=== PATIENT | female | born 1965 | race Caucasian/White ===

== ENCOUNTER → 2024-02-05 12:02 | Outpatient (REF) | payer OTHER, SELFPAY | LOC: HWWDC 12:02 | PROVIDERS: ATTENDING PHYSICIAN Obstetrics & Gynecology Gynecology; FAMILY PHYSICIAN Physician Assistant Medical | DX: Z01.419 Encounter for gynecological examination (general) (routine) without abnormal findings (principal); Z12.31 Encounter for screening mammogram for malignant neoplasm of breast | CPT/HCPCS: 77063; 77067 ==

== ENCOUNTER → 2024-09-15 14:50 | Outpatient (REF) | payer OTHER, SELFPAY | LOC: DHSLP 14:50 | PROVIDERS: ATTENDING PHYSICIAN Internal Medicine; FAMILY PHYSICIAN Physician Assistant Medical | DX: G47.33 Obstructive sleep apnea (adult) (pediatric) (principal) | CPT/HCPCS: 95800 ==

== ENCOUNTER → 2025-07-13 13:04 | Outpatient (REF) | payer OTHER, SELFPAY | LOC: HWWDC 13:04 | PROVIDERS: ATTENDING PHYSICIAN Obstetrics & Gynecology Gynecology; FAMILY PHYSICIAN Family Medicine | DX: Z12.31 Encounter for screening mammogram for malignant neoplasm of breast (principal) | CPT/HCPCS: 77063; 77067 ==

== ENCOUNTER 2025-08-16 18:58 | Emergency (ER) | payer OTHER, SELFPAY ==
[2025-08-16 19:03] VITALS: BP 174/86
[2025-08-16 22:06] VITALS: BP 146/72
--- NOTE | 2025-08-16 22:23 | ED.GENMED ---
History of Present Illness
General
Chief Complaint: Skin Surface Trauma
Source: patient
Exam Limitations: none
Time Seen by Provider: 08/16/25 21:40
Nursing documentation reviewed up to this point in time: agreed with
History of Present Illness
History of Present Illness:
Patient is a 60-year-old female who lacerated her right toe near her garden. She complains of small laceration. She is unsure of her last tetanus. No other injuries. No bony pain.
Past History
Past History
ED Past Medical History: None
ED Past Surgical History: Cholecystectomy
Social History
Tobacco: Non-smoker
Alcohol: Occasional
Personal:
Living: with family
Employment: Not employed
Family History
Family History: Other (afib)
Phy Exam
General Physical Exam
General Presentation: no apparent distress
General age: appears stated age
General Skin: warm and dry
General Habitus: normal
General Mental: alert
General Hydration: appears well hydrated
Neurological Exam
Neurological Exam: alert and oriented x3
Musculoskeletal Exam
Musculoskeletal Exam: other (Patient with 3 cm flap laceration to the plantar aspect of the right great toe no bony tenderness no swelling)
Skin Exam
Skin Exam: normal color and warm/dry
Psychiatric Exam
Psychiatric Exam: normal mood/affect
Course
Vital Signs
Initial and Last Documented VS:
Initial Vital Signs
Temp Pulse Resp BP Pulse Ox
98.9 F 83 18 174/86 98
08/16/25 19:03 08/16/25 19:03 08/16/25 19:03 08/16/25 19:03 08/16/25 19:03
Last Documented Vital Signs
Temp Pulse Resp BP Pulse Ox
97.8 F 66 15 146/72 100
08/16/25 22:06 08/16/25 22:06 08/16/25 22:06 08/16/25 22:06 08/16/25 22:06
Procedures
Laceration Closure
Right First Toe:
Status of Wound: clean
Size of Wound in cm: 3
Description of Wound Edges: sharp and flap-well vascularized
Preparation: cleaned with saline
Type of Closure: other (Steri-Strips)
MDM/Problems Addressed
Differential Diagnosis Includes:
Not limited to laceration
MDM/Problems Addressed:
Patient with laceration to right great toe was irrigated with copious angela normal saline and repaired with Steri-Strips. This is a flap superficial laceration near avulsion. Flap was tacked down using Steri-Strips. Wound care reviewed tetanus
updated
*Pulse Oximetry
SaO2: 100
Oxygen Mode of Delivery: Room air
Patient hypoxic: no
*Critical Care Note
Total Time (30-74mins, 75-104mins- exclusive of procedures): Not Applicable
ED Attending Note
-
Portions of this chart may have been created with voice recognition software.� Occasional wrong word or��sound alike� substitutions may have occurred due to the inherent limitations of voice recognition software.
Discharge Plan
Departure
Patient Disposition: Home (Routine Discharge)
Date of Disposition: 08/16/25
Time of Disposition: 22:27
Patient with high blood pressure during this ER visit?: Yes
Condition: Fair
Covid-19: Not Applicable
Discharge Problem:
Laceration
Instructions: Wound Care (DC)
Prescriptions:
No Action
amoxicillin-pot clavulanate 1 TABLET tablet
1 tab PO Q12 Qty: 20 0RF
Referrals:
Philip Cline MD [Family Provider, Family Practice]
Activity Restrictions/Additional Instructions:
Keep area clean and dry for 24 hours after 24 hours wash twice a day with soap and water pat dry
Trim Steri-Strips as needed. Follow-up with family doctor in the next 2 to 3 days for wound check .
return if any signs of infection
Interventions
Interventions:
*Risk Screen - Suicide Last Done: 08/16/25 19:03
*General Assessment Last Done: 08/16/25 19:03
*Neglect/Abuse Screening Last Done: 08/16/25 19:03
*ED- Fall Risk Assessment Last Done: 08/16/25 19:03
*ED COVID-19 Vaccine History Last Done: 08/16/25 19:03
*ED Influenza Vaccine History Last Done: 08/16/25 19:03
ED-Skin Assessment Last Done: 08/16/25 22:06
Discharge Date and Time
Print Language: CAMBODIAN
[2025-08-16] MEDS: ADACEL 0.5 ML IM (22:39)
== END 2025-08-16 22:43 | disposition home or self-care (01) ==
LOC: EMR 18:58
PROVIDERS: EMERGENCY PHYSICIAN Emergency Medicine; FAMILY PHYSICIAN Family Medicine
DX: S91.111A Laceration without foreign body of right great toe without damage to nail, initial encounter (principal); R03.0 Elevated blood-pressure reading, without diagnosis of hypertension; Z23 Encounter for immunization; X58.XXXA Exposure to other specified factors, initial encounter
CPT/HCPCS: 99282; 90471; 90715

== ENCOUNTER 2025-11-03 12:48 | Inpatient (IN) | payer OTHER, SELFPAY ==
[2025-11-03] VITALS (10 sets, daily range): BP systolic 120–144; BP diastolic 63–109
--- NOTE | 2025-11-03 07:36 | ED.GENMED ---
History of Present Illness
General
Chief Complaint: Heart Rate Problem
Source: patient
Exam Limitations: none
Time Seen by Provider: 11/03/25 06:59
Nursing documentation reviewed up to this point in time: agreed with
History of Present Illness
History of Present Illness:
Note:
CHIEF COMPLAINT(S)
The patient presents with symptoms of bronchitis and exacerbation of atrial fibrillation following medication intake.
HISTORY OF PRESENT ILLNESS
The patient is a 60-year-old female with a past medical history significant for atrial fibrillation. She was diagnosed with bronchitis by her primary care physician who noted wheezing upon examination. The physician prescribed prednisone, with an
initial dose of 20 mg taken yesterday. The patient reported feeling fatigued and attributed this initially to the medication. This morning, at approximately 1:45 AM, the patients atrial fibrillation symptoms re-emerged. Following this, she took four
half-tablets of a prescribed medication, only to experience severe gastrointestinal distress, involving vomiting and near syncope ('I was literally doing toilet, thyroid, and throwing up, and I thought I was going to faint'). She recognized these
symptoms as exacerbated in comparison to similar episodes in September. Currently, she feels significantly unwell.
PAST MEDICAL AND SURGICAL HISTORY
Positive for episodes of atrial fibrillation.
CHRONIC MEDICAL CONDITIONS SIGNIFICANTLY AFFECTING CARE
The patient�s history of atrial fibrillation is significant in her current presentation.
MEDICATIONS
The patient is currently prescribed prednisone for bronchitis.
REVIEW OF SYSTEMS
- Cardiovascular: Exacerbation of atrial fibrillation events.
- Respiratory: Wheezing noted by primary physician.
- Gastrointestinal: Severe vomiting subsequent to medication ingestion.
- General: Fatigue and dizziness noted.
PHYSICAL EXAM
General: Alert, no acute distress.
Skin: Warm, dry.
Head: Normocephalic, atraumatic.
Neck: Supple, trachea midline.
Eyes, Ears, Nose, Mouth, and Throat: Oral mucosa moist.
Cardiovascular: Normal peripheral perfusion, No edema. irregular rhythm.
Respiratory: Respirations are non-labored. Wheezing heard.
Gastrointestinal: Abdomen nondistended.
Back: Normal range of motion, Normal alignment.
Musculoskeletal: Normal ROM, normal strength.
Neurological: Alert and oriented to person, place, time, and situation, No focal neurological deficit observed.
Psychiatric: Cooperative, appropriate mood and affect.
PROBLEM LIST
Acute Problems:
- Exacerbation of atrial fibrillation
- Bronchitis
- Gastrointestinal distress post-medication ingestion
PLAN
- Administer medication to control the heart rate.
- Conduct a chest X-ray.
- Perform blood tests, including checks for COVID-19 and influenza.
- Evaluate further symptoms and conditions indicated by tests and imaging.
DIFFERENTIAL DIAGNOSIS
The Differential Diagnosis includes, in no particular order and is not limited to:
1. Exacerbation of atrial fibrillation
2. Acute bronchitis
3. COVID-19 infection
4. Influenza
5. Adverse reaction to prednisone
6. Other viral respiratory infections
7. Pneumonia
8. Heart failure
9. Pulmonary embolism
10. Medication-induced gastrointestinal disturbance
EKG
My independent EKG interpretation is:
- Time of EKG: Not specified
- Rhythm: Atrial fibrillation
- Heart Rate: 115 beats per minute
- Notable Intervals:
- [place] Interval: Not applicable due to atrial fibrillation
- QRS Duration: normal
- QT Interval: Normal QT
- [place]: Not specified
- Abnormalities Observed:
- ST Segment: Abnormality noted
- T Wave: No specific inversion mentioned
- Arrhythmias: Atrial fibrillation with a rapid ventricular response
CARE-UPDATE
11/03/25 - 13:42
Patient treated with iteltieban drip. Heart rate improved. No additional interventions required at this time. Continue monitoring vitals closely.
Disposition:
SUMMARY OF ENCOUNTER
The patient is a 60-year-old female with a past medical history of atrial fibrillation who presented to the emergency department with exacerbation of atrial fibrillation and symptoms of bronchitis after taking prednisone. She experienced severe
gastrointestinal distress following medication ingestion, including vomiting and near syncope. The patient was found to have atrial fibrillation with a rapid ventricular response. Management in the emergency department included the administration of
medication to control the heart rate and preparations for admission to evaluate anticoagulation needs.
DISPOSITION
Admit to hospitalists, await cardiology evaluation.
ASSESSMENT
The patient is experiencing an exacerbation of atrial fibrillation, likely triggered by bronchitis and medication effects. The rapid ventricular response warrants inpatient care and further cardiology evaluation to determine anticoagulation needs.
PLAN
- Admit the patient for further monitoring and management.
- Await cardiology evaluation to determine appropriate anticoagulation strategy.
- Continue to monitor and manage symptoms associated with bronchitis and GI distress.
MEDICAL DECISION MAKING
-Chronic conditions affecting care: Atrial fibrillation.
-Data:
Category 1:
- My independent EKG interpretation showed atrial fibrillation with a rapid ventricular response.
-Risk:
Prescription medication was prescribed for heart rate control.
Consideration of Admission: Admission was considered necessary due to the complexity and risk associated with the patients atrial fibrillation exacerbation and rapid ventricular response. Monitoring and specialist evaluation for anticoagulation were
deemed necessary for the patients safety.
DIAGNOSIS
1. Atrial fibrillation with rapid ventricular response (ICD-10: I48.0)
2. Influenza A
Past History
Past History
ED Past Medical History: None
ED Past Surgical History: Cholecystectomy
Social History
Tobacco: Non-smoker
Alcohol: Occasional
Personal:
Living: with family
Employment: Not employed
Family History
Family History: Other (afib)
Phy Exam
Physical Exam
Physical Exam:
.
Course
Orders/Labs/Results
Orders:
Orders
11/03/25 06:46
EKG [Electrocardiogram (*1)] Urgent
Reason for Study: Atrial Fibrillation
EKG- Treatment ONCE
11/03/25 07:29
0.9% Sodium Chloride 1000 ml [Nss] 1,000 ml IV BOLUS
Ondansetron Injectable [Zofran] 4 mg IV NOW STA
11/03/25 07:30
Cardiac Monitoring- Treatment ONCE
11/03/25 07:31
Diltiazem 125 mg/125 ml Nss [Cardizem] 125 mg in 125 ml IV NOW
Initial dose in mg/hr, then titrate:: 5
Titrate to keep:: Heart rate 80-100 bpm
Titrate by mg/hr:: 5 mg/hr
Frequency of titrations (minutes):: 15
Maximum dose in mg/hr:: 15
Diltiazem HCl [Cardizem] 5 mg IV NOW STA
11/03/25 07:32
COVID-19 Antigen Urgent
Source: Nasal Swab
Complete Blood Count/With Diff Urgent
Comprehensive Metabolic Panel Urgent
Glycohemoglobin (HgbA1c) Urgent
Lactic Acid Q4H
Comment: CANCEL 2nd LACTIC ACID IF 1st LACTIC ACID IS LESS THAN 2
Magnesium Urgent
Influenza A+B Rapid Molecular Urgent
LEIDY Source: Nasal Swab
Specimen Description:
11/03/25 07:57
CR Chest Portable - 1 View Urgent
Comment:
Reason For Exam: cough
Reason Study Needs to be Portable: Patient Unstable
11/03/25 08:23
Blood Culture Q30M
LEIDY Source: Blood/Venous
Specimen Description:
Blood Culture Q30M
LEIDY Source: Blood/Venous
Specimen Description:
11/03/25 08:30
Oseltamivir Phosphate [Tamiflu] 75 mg PO NOW STA
11/03/25 11:49
CARDIOLOGY CONSULT Routine
Consulting Provider: Romeo Luu
Was physician already notified: Yes
11/03/25 12:10
Admit/Transfer Patient As Directed
Co-Sign Provider:
Level of Care: Inpatient admission
Assign to:: IVU
Physician / Group: Hospitalist
Diagnosis: Paroxysmal Atrial Fibrillation with Rapid Ventricular Response
Reason for Hospitalization: Paroxysmal Atrial Fibrillation with Rapid Ventricular Response
Expected length of stay greater than two midnights?: Yes
ELOS- Estimated Length of Stay in days: 3
I certify the patient meets the requirements for IP care: Yes
11/03/25 12:19
Code Status As Directed
Resuscitation Status: Full Code
Abnormal Lab Results
11/03/25
07:32
WBC 4.4 L 10^3/uL
(4.8-10.8)
MCH 32.0 H pg
(27.0-31.0)
Absolute Lymphs (auto) 0.9 L 10^3/uL
(1.2-3.4)
Immature Gran % 0.7 H %
(0-0.5)
Lymphocytes % 19.6 L %
(20.5-51.1)
Monocytes % 12.5 H %
(1.7-9.3)
Carbon Dioxide 19 L mmol/L
(22-30)
Glucose 117 H mg/dl
(70-99)
11/03/25 07:32
11/03/25 07:32
Vital Signs
Initial and Last Documented VS:
Initial Vital Signs
Temp Pulse Resp BP Pulse Ox
98.1 F 126 26 135/102 96
11/03/25 07:01 11/03/25 07:01 11/03/25 07:01 11/03/25 07:01 11/03/25 07:01
Last Documented Vital Signs
Temp Pulse Resp BP Pulse Ox
98.1 F 94 12 139/89 95
11/03/25 07:01 11/03/25 13:00 11/03/25 13:00 11/03/25 11:00 11/03/25 11:00
*Pulse Oximetry
SaO2: 96
Oxygen Mode of Delivery: Room air
Patient hypoxic: no
*Critical Care Note
Total Time (30-74mins, 75-104mins- exclusive of procedures): 30
comment:
Critical care statement: A total of 30 minutes of critical care time was provided for this patient. This includes management of unstable vital signs, evaluation of the patient at bedside, reviewing the patient's pertinent medical records, discussion
with consultants, review of old EKGs and review of pertinent medical records. This time with separate from time utilized to perform the aforementioned documented procedures
ED Attending Note
-
Portions of this chart may have been created with voice recognition software.� Occasional wrong word or��sound alike� substitutions may have occurred due to the inherent limitations of voice recognition software.
Discharge Plan
Departure
Patient Disposition: Admit
Date of Disposition: 11/03/25
Time of Disposition: 09:55
Admit to: IMU
Presentation/result/management discussed w/ accepting MD/DO: Hospitalist
Patient with high blood pressure during this ER visit?: Yes
Condition: Fair
Discharge Problem:
Atrial fibrillation with rapid ventricular response, Influenza A
Interventions
Interventions:
*General Assessment Last Done: 11/03/25 09:07
*Neglect/Abuse Screening Last Done: 11/03/25 09:07
*ED COVID-19 Vaccine History Last Done: 11/03/25 09:07
*ED Influenza Vaccine History Last Done: 11/03/25 09:07
[facility] Fall Risk Assessment Tool Last Done: 11/03/25 07:00
*Risk Screen - Suicide (C-SSRS) Last Done: 11/03/25 07:01
ED- Cardiac Assessment Last Done: 11/03/25 07:45
ED- Pulmonary Assessment Last Done: 11/03/25 07:45
[2025-11-03] MEDS: NSS 1000 IV (07:42)
[2025-11-03] MEDS: ZOFRAN 4 MG IV (07:42)
[2025-11-03] MEDS: CARDIZEM 5 MG IV (07:42)
[2025-11-03] MEDS: CARDIZEM 125 IV (07:43)
[2025-11-03 08:19] LABS: Hematocrit 38.8 % (37.0-47.0); Hemoglobin 14.2 g/dL (12.0-16.0); Mean Corp Hgb Conc. 36.6 g/dL (33.0-37.0); Mean Corpuscular Volume 87.4 fL (81.0-99.0); Nucleated Red Blood Cells % 0 %; Platelet Count 179 10^3/uL (130-400); Red Cell Dist. Width 11.7 % (11.5-14.5)
[2025-11-03 08:20] LABS: ALT (SGPT) 29 U/L (0-35); AST (SGOT) 27 U/L (14-36); Albumin 4.3 g/dl (3.5-5.0); Alkaline Phosphatase 83 U/L (38-126); Blood Urea Nitrogen 12 mg/dl (7-17); Calcium 9.0 mg/dl (8.4-10.2); Carbon Dioxide 19 mmol/L (22-30); Chloride 104 mmol/L (98-107); Glucose 117 mg/dl (70-99); Magnesium 2.0 mg/dl (1.6-2.3); Potassium 3.7 mmol/L (3.5-5.1); Sodium 135 mmol/L (135-145); Total Protein 7.0 g/dl (6.3-8.2); eGFR > 60.00
[2025-11-03 08:28] LABS: COVID-19 Antigen Negative (Negative)
--- NOTE | 2025-11-03 10:33 | HPS.HSE ---
Addendum entered and electronically signed by Katlyn Marshall MD 11/03/25 19:54:
I personally performed a history and physical exam of the patient and discussed management with the resident. I reviewed the resident's note and agree with the documented findings and plan of care HPI/CC.
GENERAL: well developed, well nourished, female in no apparent distress
HEENT: NC/AT--no O2 requirements
HEART: irreg irreg
LUNGS : clear to auscultation bilaterally
ABDOM: soft, nontender, nondistended, + bowel sounds
EXT: no cyanosis, clubbing, or edema
NEUROLOGIC: grossly intact
Paroxysmal atrial fibrillation with rapid ventricular response--felt this AM likely from influenza A and possibly steroids--admit to IVU with cardizem drip--consult cards--d/w cards that pt likely needs short term anticoagulation for ~ 30 days--pt
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
Recent influenza upper respiratory tract infection--did not want Tamiflu--finish ABX and steroids
Hyperlipidemia--Continue Rosuvastatin
DVT Proph
Code status- Full
Original Note:
Family Physician
-
Family Physician: Philip Cline
Chief Complaint
-
Fast heart beat
History of Present Illness
Ms. Garcia is a 60-year-old female with a known history of paroxysmal A-fib, hyperlipidemia, reactive airway disease presented on account of sudden onsets of spontaneous fast heartbeat, palpitation that started early hours of this morning
She took 4 tablets of propafenone [pill in pocket] following which she had abdominal discomforts nausea vomiting and diarrhea prompting her visit to the ED
She has been having upper respiratory symptoms for more than 5 days, presented to her primary care tested positive for flu, given azithromycin, and prednisone tablet. She was offered Tamiflu which she refused.
Medical History
Past Medical History
Past Medical History: Reports Arrhythmia, Asthma and Hypercholesterolemia
Past Surgical History: Reports Cholecystectomy
Additional Past Surgical History:
Tubal ligation, left ovarian cyst removal
Social History
Tobacco: Former Smoker
Alcohol: Occasional
Drug: None
Personal:
Living: With Family
Employment: Other (Self-employed)
Family History
Family History: Other (Father with history of arrhythmias)
Allergies / Home Medications
Allergies reflects when Allergies were last updated in [employer].
Home Medications with original date entered in [employer]
Allergy/Medication List:
Allergies
Allergy/AdvReac Type Severity Reaction Status Date / Time
metronidazole (From Flagyl) Allergy bacterial Verified 11/03/25 16:06
vaginosis
Penicillins Allergy Rash Verified 11/03/25 16:06
prochlorperazine edisylate Allergy unable to Verified 11/03/25 16:06
(From Compazine) talk
prochlorperazine maleate Allergy unable to Verified 11/03/25 16:06
(From Compazine) talk
Home Medications
albuterol sulfate 90 mcg/actuation aerosol inhaler 1 puff inhalation R Q6HPRN PRN sob 11/03/25
azithromycin 250 mg tablet 0 mg PO .COMPLEX 11/03/25
cholecalciferol (vitamin D3) 25 mcg (1,000 unit) tablet (Vitamin D3) 25 mcg PO DAILY 11/03/25
cyanocobalamin (vitamin B-12) 1,000 mcg tablet 1,000 mcg PO DAILY 11/03/25
ibuprofen 200 mg tablet (Advil) 400 mg PO Q6H PRN headache 11/03/25
prednisone 10 mg tablet 10 mg PO DAILY 11/03/25
rosuvastatin 10 mg tablet 10 mg PO DAILY 11/03/25
Review of Systems
-
History Source: Patient
A 12 point ROS was completed and negative except as noted: Yes
Physical Exam
Vital Signs
Vital Signs
Temp Pulse Resp BP Pulse Ox
98.1 F 112 15 120/94 96
11/03/25 07:01 11/03/25 10:00 11/03/25 10:00 11/03/25 10:00 11/03/25 10:00
Physical Exam
General: Well Developed, Well Nourished, No Apparent Distress and Comfortable
HEENT: NormoCephalic and Anicteric
Respiratory: Clear
Cardiac: Regular Rhythm (Irregularly irregular, tachycardic)
GI: Soft, Non Tender, Non Distended and Normal Bowel Sounds
Genito-urinary: Deferred by me
Musculoskeletal: No Edema
Skin: Warm and Dry
Neuro: Awake, Alert, AO x 3 and Nonfocal/grossly intact
Hematologic/Lymphatic: No Lymphadenopathy
Psych: Calm
Laboratory Results
-
11/03/25 07:32
11/03/25 07:32
Laboratory Results
Lactic Acid Cancelled 11/03/25 12:00
Total Bilirubin 0.4 mg/dl (0.2-1.3) 11/03/25 07:32
AST 27 U/L (14-36) 11/03/25 07:32
ALT 29 U/L (0-35) 11/03/25 07:32
Alkaline Phosphatase 83 U/L (38-126) 11/03/25 07:32
Data Reviewed
-
Medical Tests (Nuc Med, Echo, EKG etc): Report Reviewed by me, Discussed with Physician and Discussed with Patient
Lab Data: Labs Reviewed by me, Discussed with Physician and Discussed with Patient
Impression/Plan
-
In summary, Ms Garcia is a 60-year-old female with a known history of paroxysmal A-fib, not anticoagulated, 2 episodes of cardioversion 2012, 2019 with a past medical history of hyperlipidemia reactive liver disease presenting with irregular
heartbeat following a recent flu infection.
Admit to IV
PLAN:
1) Paroxysmal atrial fibrillation with rapid ventricular response
Presenting with fast heartbeat.
EKG in ED shows A-fib with AVR currently on telemetry.
Received Cardizem drip bolus 5 mg, now on infusion, continue.
Still not rate, still not rate or rhythm controlled.
Last echo on chart 2022.
Do Echo
Cardiology consult
2) Stroke prevention
MACHO 2 DS 2 -VASc 1,
Eliquis for anticoagulation and DVT Prophylaxis
4) Recent flu upper respiratory tract infection
Continue PRN Albuterol
Hold Prednisone and Azithromycin
5) Hyperlipidemia
Continue Rosuvastatin
6) DVT PPX- Elliquis
7) Code- Full
8) Dispo- Home
--- NOTE | 2025-11-03 13:02 | CON.CAR ---
Addendum entered and electronically signed by Romeo Luu MD 11/03/25 13:46:
Patient evaluated in collaboration with [employer]; agree with below.
- 60-year-old female with paroxysmal atrial fibrillation, hypertension (new diagnosis), and hyperlipidemia admitted with shortness of breath; found to have flu and was also noted to be in atrial fibrillation with RVR.
- Continue Cardizem drip.
- Recommend starting Eliquis for now; patient may need to undergo DDCVN (+ ИВАН in the next upcoming weeks if she has not spontaneously converted out of A-fib after recovering from flu).
- equipment monitor phototypesetting; will follow.
- Will plan to transition to PO Cardizem prior to discharge.
Original Note:
Consultation
Consultation Request
Date/Time Consultation Requested: 11/03/25 11:50a
Date/Time Consultation Performed: 11/03/25 12:30p
Requesting Provider: Dr. Morris
Performing Provider: CELSO Ramirez for Dr. Luu
Reason for Consultation: rapid Afib
Medical History
-
Chief Complaint: flu symptoms/rapid Afib
History of Present Illness:
Mrs. Garcia is a 60 yo female with paroxysmal Afib (not on OAC as [id number] score 1, female), and HLD, who presents to the ER with c/o palpitations in rapid Afib. She states feeling flu symptoms on Thursday10/29/25, saw her PCP Thursday11/01/25
who prescribed her prednisone taper, breo inhaler for wheezing and Zithromax. She then woke at 1:45am today with palpitations, so she took PRN Propafenone 600mg and 1 hour later she had vomiting/diarrhea/nausea and still with palpitations. EKG in
the ER showed rapid Afib 115 bpm, she was started on a Cardizem drip and rates have improved. Influenza A positive in the ER. She is admitted to the hospitalist service and we are consulted for rapid Afib.
Past Medical History
Past Medical History: Other (as above)
Social History
Tobacco: Non-Smoker
Alcohol: Occasional
Family History
Family History: Reviewed & Not Pertinent
Allergies / Home Medications
Allergy/AdvReac Type Severity Reaction Status Date / Time
prochlorperazine edisylate Allergy Severe Unknown Verified 11/03/25 06:55
(From Compazine)
prochlorperazine maleate Allergy Severe Unknown Verified 11/03/25 06:55
(From Compazine)
Penicillins Allergy Intermediate Rash Verified 11/03/25 06:55
metronidazole (From Flagyl) Allergy Unknown Verified 11/03/25 06:55
�Medication �Instructions �Recorded �Confirmed �Type
albuterol sulfate 90 mcg/actuation 1 puff inhalation R Q6HPRN PRN sob 11/03/25 11/03/25 History
aerosol inhaler
azithromycin 250 mg tablet 0 mg PO .COMPLEX 11/03/25 11/03/25 History
cholecalciferol (vitamin D3) 25 25 mcg PO DAILY 11/03/25 11/03/25 History
mcg (1,000 unit) tablet (Vitamin
D3)
cyanocobalamin (vitamin B-12) 1,000 mcg PO DAILY 11/03/25 11/03/25 History
1,000 mcg tablet
ibuprofen 200 mg tablet (Advil) 400 mg PO Q6H PRN headache 11/03/25 11/03/25 History
prednisone 10 mg tablet 10 mg PO DAILY 11/03/25 11/03/25 History
rosuvastatin 10 mg tablet 10 mg PO DAILY 11/03/25 11/03/25 History
Review of Systems
-
History Source: Patient
All other systems: Negative unless noted
Physical Exam
Vital Signs
Temp Pulse Resp BP Pulse Ox
98.1 F 108 13 139/89 95
11/03/25 07:01 11/03/25 12:15 11/03/25 12:15 11/03/25 11:00 11/03/25 11:00
Lab Results
11/03/25 07:32
11/03/25 07:32
Physical Exam
General: Well Developed, Well Nourished and No Apparent Distress
HEENT: Normocephalic and Anicteric
Respiratory: Clear and Non Labored Respirations
Cardiac: S1/S2 and Irregular Rhythm
Breast: Deferred by me
GI: Soft, Non Tender and Normal Bowel Sounds
Rectal: Deferred by Provider
Genito-urinary: Clear Urine
Musculoskeletal: No Edema
Skin: Warm and Dry
Neuro: AO x 3
Psych: Calm
Impression / Plan
-
Afib - rapid rates on arrival.
- continue IV Diltiazem for rate control.
- [id number] score is 1, female. no OAC.
- she had diarrhea/vomiting after taking Propafenone 600mg this am.
Influenza A - positive in the ER.
- symptoms began Thursday10/29/25, feeling better.
- Tamiflu started per hospitalist.
HLD - stable on Lipitor 10mg daily, continue.
Data Reviewed
-
EKG: Tracing Personally Visualized and interpreted (Afib 115 bpm )
Radiology: Report Reviewed by me (CXR: NAD )
Labs: Labs Reviewed by me
Old Records: Reviewed
[2025-11-03 14:17] LABS: Glycohemoglobin (HgbA1c) 5.7 % (4.0-5.9)
--- NOTE | 2025-11-03 15:52 | CM ---
Addendum entered by Malathi Molina 11/03/25 16:16:
VM left requesting call back with cost information.
Addendum entered by Malathi Molina 11/03/25 16:14:
CM called to [facility] and requested cost of Eliquis, coupons provided to physician.
Original Note:
Patient seen with physicians in ED. Patient states that she lives with her in a 2 story home. Patient PCP is Dr. Pretty and she uses the [facility]. Patient uses [facility] at home and Rigging Up Worker is Dr. Walker. Patient with flu at
this time. CM will continue to follow for discharge planning needs.
Plan; home with watch for Eliquis cost/coupons
--- NOTE | 2025-11-03 16:15 | CM ---
Pricing on Eliquis through the patients PP, ID# [id number], , is $328. Patient still has a $500 deductible she needs to meet, then the patient has a $100 copay for a 30 day supply. Patient has commercial insurance and qualifies for
the copay card. I will place a free 30 day and a $10 copay card in the patient's red discharge folder
--- NOTE | 2025-11-03 18:10 | W.PN.UPDATE ---
Update Note
Progress Note Update
Ms Garcia is a 60-year-old female being manage who paroxysmal A-fib on diltiazem drip
She has spontaneously converted to normal sinus rhythm. EKG confirms this.
Blood pressure has been elevated in the last 2 readings.
She is to remain on the graham for continued monitoring.
However patient's stresses that she wants to go home and does not want to start Eliquis until she sees a horticulture/floriculture teacher.
She is however open to starting Cardizem
States that she can always return if she was back to A-fib.
She is subsequently discharged per her request to follow-up with her horticulture/floriculture teacher in outpatient.
[2025-11-03] MEDS: CARDIZEM CD 120 MG PO (18:56)
--- NOTE | 2025-11-03 20:08 | W.DCSUMMARY ---
Addendum entered and electronically signed by Katlyn Marshall MD 11/04/25 07:52:
Read, reviewed, and agree. See same day progress note for additional details. Time spent coordinating care, DC planning, review of DC plan of care with resident, transition of care, review of records in EMR, med rec, consults, notes, d/w
consultants, nursing, family, and CM = 33 minutes
Original Note:
Discharge Summary
Discharge Data
Date of Admission: 11/03/25
Date of Discharge: 11/03/25
-
Pending Results: No
Hospital Course
Discharging Physician : Denae Morris MD, Katlyn Marshall MD
Disposition : Home
Primary care physician : Philip Cline
Principal Discharge diagnosis :
Paroxysmal atrial fibrillation
Recent flu upper respiratory tract infection
Hyperlipidemia
Essential Hypertension
Hospital Course :
In summary, Ms Garcia is a 60-year-old female with a known history of paroxysmal A-fib, not anticoagulated, 2 episodes of cardioversion 2012, 2018 with a past medical history of hyperlipidemia airway disease who presented to the [facility] ED 11/03/2025
with irregular heartbeat following a recent flu infection.
On presentation to the ED she was in no obvious distress, was seen to be in A-fib with RVR
She was monitored on telemetry and was placed on Diltiazem and eventually converted to sinus rhythm.
Her blood pressure was eventually was noticed to be high at this admission concerning for essential hypertension.
Following conversion to sinus rhythm she requested to be discharged.
She is being discharged on Cardizem to follow-up with her covering and lining supervisor on outpatient basis
cedure findings :
Discharge Plan
-
Patient Disposition: Home (Routine Discharge)
Discharge Diagnosis/Procedures: Paroxysmal atrial fibrillation
Recent flu upper respiratory tract infection
Hyperlipidemia
Essential Hypertension
Condition: Fair
Diet: No restrictions
Activity: No restrictions
Driving Restrictions: As prior to admission
Bathing Restrictions: None
Referrals:
Philip Cline MD [Family Provider, Family Practice]
Referral Note: Follow up with your primary care provider in less than 1 week of your hospital discharge
Junior Walker MD [Active, Cardiology]
Referral Note: Follow up with your covering and lining supervisor in less than 1 week of your hospital discharge
Additional Discharge Medication Instructions: You were started on Diltiazem (Cardizem) in this admission. Take 1 tablet by mouth daily
Your prednisolone and Azithromycin tablet were discontinued in this admission
Prescriptions:
New
diltiazem HCl 120 mg Capsule,Extended Release 24hr
120 mg PO DAILY Qty: 30 0RF
Continued
ibuprofen [Advil] 200 mg Tablet
400 mg PO Q6H PRN (Reason: headache)
albuterol sulfate 90 mcg/actuation Hfa Aerosol Inhaler
1 puff INHALATION R Q6HPRN PRN (Reason: sob)
cyanocobalamin (vitamin B-12) 1,000 mcg Tablet
1,000 mcg PO DAILY Qty: 0 0RF
rosuvastatin 10 mg Tablet
10 mg PO DAILY Qty: 0 0RF
cholecalciferol (vitamin D3) [Vitamin D3] 25 mcg (1,000 unit) Tablet
25 mcg PO DAILY Qty: 0 0RF
Discontinued
prednisone 10 mg Tablet
10 mg PO DAILY
Rx Instructions:
start date 11/01/25 end date 11/06/25 - MKO
azithromycin 250 mg Tablet
0 mg PO .COMPLEX
Rx Instructions:
For 250 mg dose pack: take 500 mg today (day 1), then 250 mg for 4 days (days 2-5)
Discharge Orders:
Discharge Patient (As Directed); Ordered 11/03/25
Ordered By: Denae Morris
Discharge Date and Time
Discharge Date/Time: 11/03/25 18:59
Print Language: FRENCH
== END 2025-11-03 18:59 | disposition home or self-care (01) | DRG 195 ==
LOC: ED 12:48
PROVIDERS: ADMITTING PHYSICIAN Internal Medicine; CONSULT PHYSICIAN Internal Medicine; EMERGENCY PHYSICIAN Emergency Medicine; FAMILY PHYSICIAN Family Medicine
DX: J10.1 Influenza due to other identified influenza virus with other respiratory manifestations (principal); I48.0 Paroxysmal atrial fibrillation; Z11.52 Encounter for screening for COVID-19; E78.00 Pure hypercholesterolemia, unspecified; I10 Essential (primary) hypertension; J45.909 Unspecified asthma, uncomplicated; Z79.899 Other long term (current) drug therapy; Z87.891 Personal history of nicotine dependence
CPT/HCPCS: 71045; 80053; 83036; 83605; 83735; 85025; 87040; 87502; 87811; 93005; 96365; 96366; 96375; 99291